=== PATIENT | male | born 2000 | race Two or more races ===

== ENCOUNTER 2025-03-06 21:09 | Emergency (ER) | payer SELFPAY ==
[~2025-03-06] VITALS: Ht 170.2 cm; Wt 75.6 kg
[2025-03-06 21:17] VITALS: BP 155/94; PULSE 107; RESP 18; TEMP 98.4; O2SAT 98
--- NOTE | 2025-03-06 23:30 | DVH ---
EXAM: XY L RIB X RAY DATE OF SERVICE: 03/06/2025 11:07 PM ORDERING PHYSICIAN: MELISSA BARILLAS REASON FOR EXAM: left rib pain TECHNIQUE: AP and oblique images of the left-sided ribs were acquired. COMPARISON: None FINDINGS: No acute fracture or dislocation is seen. The lungs are clear. There is no pneumothorax. IMPRESSION: No acute fracture or dislocation. End of Report
[2025-03-06] MEDS ORDERED: IBUP-1456 PO (23:40)
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
== END 2025-03-07 00:20 | disposition home or self-care (01) ==
LOC: ER 21:09
DX: S23.41XA Sprain of ribs, initial encounter (principal); Z79.899 Other long term (current) drug therapy; X58.XXXA Exposure to other specified factors, initial encounter; Y93.89 Activity, other specified; Y92.89 Other specified places as the place of occurrence of the external cause; Y99.8 Other external cause status
CPT/HCPCS: 71101